=== PATIENT | female | born 1965 | race Caucasian/White ===

== ENCOUNTER → 2018-10-16 | Outpatient (CLI) | payer OTHER | LOC: M.CT 10-08 08:30 | DX: J32.9 Chronic sinusitis, unspecified (principal); J34.89 Other specified disorders of nose and nasal sinuses ==

== ENCOUNTER → 2019-05-10 | Outpatient (CLI) | payer OTHER | LOC: M.RAD 16:41 | DX: R91.1 Solitary pulmonary nodule (principal); J01.91 Acute recurrent sinusitis, unspecified; J92.9 Pleural plaque without asbestos; M41.80 Other forms of scoliosis, site unspecified; M47.819 Spondylosis without myelopathy or radiculopathy, site unspecified ==

== ENCOUNTER → 2019-06-17 | Outpatient (CLI) | payer OTHER | LOC: M.RAD 08:16 | DX: J18.1 Lobar pneumonia, unspecified organism (principal) ==

== ENCOUNTER 2020-12-31 20:22 | Emergency (ER) | payer OTHER ==
[~2020-12-31] VITALS: Ht 165.1 cm; Wt 81.7 kg
[2020-12-31] MEDS ORDERED: HYDROCODON-ACE1 EAC8 PO (21:46)
[2020-12-31 22:05] VITALS: BP 102/65
== END 2020-12-31 22:06 | disposition home or self-care (01) ==
LOC: M.ERS 20:22
DX: S92.512A Displaced fracture of proximal phalanx of left lesser toe(s), initial encounter for closed fracture (principal); W22.8XXA Striking against or struck by other objects, initial encounter; Y93.89 Activity, other specified; Y92.89 Other specified places as the place of occurrence of the external cause; Y99.8 Other external cause status

== ENCOUNTER 2021-02-23 10:24 | Emergency (ER) | payer OTHER ==
[~2021-02-23] VITALS: Ht 165.1 cm; Wt 81.7 kg
[~2021-02-23 10:24] MED LIST: HYDROCODON-ACE1 EAC8 PO
[2021-02-23] MEDS ORDERED: FLEXERIL PO (12:15)
[2021-02-23 12:24] VITALS: BP 178/95
== END 2021-02-23 12:25 | disposition home or self-care (01) ==
LOC: M.ERS 10:24
DX: S60.222A Contusion of left hand, initial encounter (principal); S40.012A Contusion of left shoulder, initial encounter; Z88.2 Allergy status to sulfonamides; Z88.1 Allergy status to other antibiotic agents; V87.7XXA Person injured in collision between other specified motor vehicles (traffic), initial encounter; Y93.I9 Activity, other involving external motion; Y92.413 State road as the place of occurrence of the external cause; Y99.8 Other external cause status

== ENCOUNTER → 2021-03-09 | Outpatient (CLI) | payer OTHER ==
[~2021-03-09] MED LIST changes: +FLEXERIL PO
== END ==
LOC: M.MRI 03-01 11:18
PROVIDERS: ATTEND Registered Nurse Diabetes Educator
DX: M48.02 Spinal stenosis, cervical region (principal); M50.222 Other cervical disc displacement at C5-C6 level; M25.78 Osteophyte, vertebrae; M47.812 Spondylosis without myelopathy or radiculopathy, cervical region; M48.03 Spinal stenosis, cervicothoracic region; R51.9 Headache, unspecified; R42 Dizziness and giddiness; R41.89 Other symptoms and signs involving cognitive functions and awareness; R11.0 Nausea; V89.2XXD Person injured in unspecified motor-vehicle accident, traffic, subsequent encounter

== ENCOUNTER → 2021-04-02 | Outpatient (CLI) | payer OTHER ==
[~2021-04-02] MED LIST changes: +ADVIL200 M1 PO; +PROZAC10 M1 PO
== END ==
LOC: M.PC 09:35
PROVIDERS: ATTEND Physical Medicine & Rehabilitation
DX: M50.323 Other cervical disc degeneration at C6-C7 level (principal); M48.02 Spinal stenosis, cervical region; M47.812 Spondylosis without myelopathy or radiculopathy, cervical region; M25.512 Pain in left shoulder

== ENCOUNTER → 2021-04-30 | Outpatient (CLI) | payer OTHER | END | disposition home or self-care (01) | LOC: M.PC 09:26 | PROVIDERS: ATTEND Physical Medicine & Rehabilitation | DX: M50.121 Cervical disc disorder at C4-C5 level with radiculopathy (principal); M48.02 Spinal stenosis, cervical region; M47.22 Other spondylosis with radiculopathy, cervical region; F41.9 Anxiety disorder, unspecified; M19.90 Unspecified osteoarthritis, unspecified site; Z98.890 Other specified postprocedural states; Z79.899 Other long term (current) drug therapy; Z88.8 Allergy status to other drugs, medicaments and biological substances; Z88.2 Allergy status to sulfonamides ==

== ENCOUNTER → 2021-05-14 | Outpatient (CLI) | payer OTHER | LOC: M.PC 09:10 | PROVIDERS: ATTEND Physical Medicine & Rehabilitation | DX: M47.812 Spondylosis without myelopathy or radiculopathy, cervical region (principal); M50.323 Other cervical disc degeneration at C6-C7 level; M48.02 Spinal stenosis, cervical region; M25.512 Pain in left shoulder ==